=== PATIENT | male | born 1960 | race Caucasian/White ===

== ENCOUNTER 2023-08-04 12:30 | Inpatient (IN) | payer OTHER ==
[~2023-08-04] VITALS: Ht 188 cm; Wt 96.2 kg
[2023-08-04] VITALS (7 sets, daily range): BP systolic 125–153; BP diastolic 65–100; PULSE 103–124; RESP 25–39; TEMP 97.6–99.9; O2SAT 98–100
[2023-08-04] MEDS: NACL 0.9% 3,000 ML IV ONE (13:18)
[2023-08-04 13:23] LABS: BASOPHILS % (AUTO) 0.3 % (0.0-2.0); EOSINOPHILS # (AUTO) 0.2 K/uL (0-0.4); EOSINOPHILS % (AUTO) 1.9 % (0.0-4.0); HEMOGLOBIN 9.9 g/dL (12.0-18.0); LYMPHOCYTES # (AUTO) 1.2 K/uL (2.0-11.5); LYMPHOCYTES % (AUTO) 10.5 % (20.5-51.1); MEAN CORPUSCULAR HEMOGLOBIN 30 pg (27-31); MEAN CORPUSCULAR HGB CONC 33 g/dL (33-37); MEAN CORPUSCULAR VOLUME 91.2 fL (80-94); MONOCYTES # (AUTO) 0.7 K/uL (0.8-1.0); MONOCYTES % (AUTO) 6.2 % (1.7-9.3); NEUTROPHILS # (AUTO) 9.1 K/uL (1.8-7.7); NEUTROPHILS % (AUTO) 81.1 % (42.2-75.2); PLATELET COUNT (AUTO) 374 K/uL (140-450); RED CELL DISTRIBUTION WIDTH 15.8 % (11.6-13.7); WHITE BLOOD COUNT (AUTO) 11.2 K/uL (4.8-10.8)
[2023-08-04 13:41] LABS: ANION GAP 20.9 (8-16); CALCIUM 8.6 mg/dL (8.5-10.1); CARBON DIOXIDE 19.4 mmol/L (21-32); POTASSIUM 3.3 mmol/L (3.5-5.1)
[2023-08-04 13:44] LABS: CREATININE 4.7 mg/dL (0.6-1.3)
[2023-08-04 13:55] LABS: LACTIC ACID 3.2 mmol/L (0.4-2.0)
[2023-08-04] MEDS: METOPROLOL 5 MG/5 ML VIAL IVP ONE ×2 (13:55→15:52)
[2023-08-04 13:58] LABS: ALANINE AMINOTRANSFERASE 63 U/L (12-78); ALBUMIN 2.4 g/dL (3.4-5.0); ALKALINE PHOSPHATASE 170 U/L (50-136); ASPARTATE AMINOTRANSFERASE 57 U/L (15-37); BILIRUBIN,DIRECT 0.5 mg/dL (0.0-0.3); MAGNESIUM 2.3 mg/dL (1.8-2.4); PHOSPHORUS 4.1 mg/dL (2.5-4.9); THYROID STIMULATING HORMONE 2.99 uIU/mL (0.34-3.74); TOTAL BILIRUBIN 1.1 mg/dL (0.0-1.0); TOTAL PROTEIN, SERUM 7.6 g/dL (6.4-8.2)
[2023-08-04] MEDS ORDERED: PIPERACILLIN/TAZOBACTAM 2.25 GM VIAL IV ONE ×2 (14:04→21:00)
[2023-08-04] MEDS: PIPERACILLIN/TAZOBACTAM 2.25 GM in DEXTROSE 5% 50 ML IV ONE (14:07)
[2023-08-04 14:32] LABS: APPEARANCE,URINE CLOUDY (CLEAR); BILIRUBIN,URINE 2+ (NEGATIVE); BLOOD, URINE 3+ (NEGATIVE); COLOR,URINE BROWN (YELLOW); LEUKOCYTE ESTERASE ,URINE TRACE (NEGATIVE); NITRITE, URINE NEGATIVE (NEGATIVE); PH,URINE 5.5 (5.0-9.0); PROTEIN,URINE 3+ (NEGATIVE); UGLUCOSE NEGATIVE (NEGATIVE)
[2023-08-04 14:56] LABS: FLU A ANTIGEN negative (NEGATIVE); FLU B ANTIGEN NEGATIVE (NEGATIVE)
[2023-08-04 14:57] LABS: ICTOTEST NEGATIVE (NEGATIVE)
[2023-08-04 14:59] LABS: BACTERIA,URINE FEW /HPF (None Seen); RBC,URINE 11-20 (MOD) /HPF (0-5); SQUAMOUS EPITHELIAL CELL,UR 0-3 (FEW) /LPF (0-3 (FEW))
[2023-08-04] MEDS ORDERED: ACETAMINOPHEN 325 MG TAB PO PRN (17:05)
[2023-08-04] MEDS ORDERED: ONDANSETRON 4 MG/2 ML VIAL IVP PRN (17:05)
[2023-08-04] MEDS ORDERED: DEXTROSE 50% 50 ML SYR IVP PRN (17:10)
[2023-08-04] MEDS: NACL 0.9% 1,000 ML IV SCH (17:12)
[2023-08-04] MEDS ORDERED: AMIODARONE 150 MG/3 ML VIAL IV ONE ×2 (17:20)
[2023-08-04] MEDS: AMIODARONE 150 MG in DEXTROSE 5% 100 ML IV ONE (17:28)
[2023-08-04] MEDS: LORazepam 2 MG/ML VIAL IVP ONE (17:32)
[2023-08-04] MEDS: AMIODARONE 450 MG in DEXTROSE 5% 250 ML IV ONE (17:47)
[2023-08-04] MEDS ORDERED: ACET-2619 PO (17:54)
[2023-08-04 17:56] LABS: BLOOD GAS PCO2 27.8 mmHg (35-45); BLOOD GAS PH 7.364 (7.35-7.45)
[2023-08-04 17:57] LABS: BLOOD GAS BASE EXCESS -8.6 mmol/L (-2.0-2.0); BLOOD GAS HCO3 15.5 mmol/L (22-26); BLOOD GAS O2 SAT% 98.7 % (92.0-98.5); BLOOD GAS PO2 140.5 mmHg (75-100)
[2023-08-04] MEDS ORDERED: ASCO500T95 PO (17:58)
[2023-08-04] MEDS ORDERED: ACET-2214 PO (17:58)
[2023-08-04] MEDS ORDERED: ARGI4.5P3 PO (17:58)
[2023-08-04] MEDS ORDERED: ASPI-1822 PO (17:58)
[2023-08-04] MEDS ORDERED: INSU100S22 SC (18:08)
[2023-08-04] MEDS ORDERED: MULT-2171 PO (18:08)
[2023-08-04] MEDS ORDERED: BISA-213 RC (18:08)
[2023-08-04] MEDS ORDERED: METO25TA PO (18:08)
[2023-08-04] MEDS ORDERED: METO-485 PO (18:08)
[2023-08-04] MEDS ORDERED: LORA-476 PO (18:08)
[2023-08-04] MEDS ORDERED: LEVE1000 PO (18:08)
[2023-08-04] MEDS ORDERED: FAMO-90 PO (18:08)
[2023-08-04] MEDS ORDERED: HEPA500056 (18:08)
[2023-08-04] MEDS ORDERED: NUTR30LI2 PO (18:08)
[2023-08-04] MEDS ORDERED: ZINC220C9 PO (18:08)
[2023-08-04] MEDS ORDERED: DIPH25TA53 PO (18:08)
[2023-08-04] MEDS ORDERED: NYST15CR7 TP (18:08)
[2023-08-04] MEDS ORDERED: ESCI-28 PO (18:08)
[2023-08-04] MEDS ORDERED: TAMS0.4C96 PO (18:08)
[2023-08-04] MEDS ORDERED: QUET200T PO (18:08)
[2023-08-04] MEDS ORDERED: INSU100S5 IJ (18:08)
[2023-08-04] MEDS ORDERED: CLON-1202 PO (18:08)
[2023-08-04] MEDS ORDERED: AMIODARONE 450 MG in DEXTROSE 5% 250 ML IV ONE (18:45)
[2023-08-04] MEDS: AMIODARONE 450 MG in DEXTROSE 5% 250 ML IV SCH (20:29)
[2023-08-04] MEDS ORDERED: DEXT 5% / NACL 0.9% 500 ML IV SCH (21:05)
[2023-08-04] MEDS: BLOOD GLUCOSE MONITORING 1 DEV DEV FS SCH (21:09)
[2023-08-04] MEDS: PIPERACILLIN/TAZOBACTAM 2.25 GM in DEXTROSE 5% 50 ML IV SCH (21:19)
[2023-08-04] MEDS: DEXT 5% /NACL 0.9% 1,000 ML IV SCH (21:34)
[2023-08-04] MEDS: KCL 20 MEQ IN 100 mL PREMIX 200 ML IV ONE (21:44)
[2023-08-04] MEDS: LINEZOLID 600MG PREMIX 300 ML IV SCH (21:47)
[2023-08-04] MEDS: METOPROLOL 5 MG/5 ML VIAL IVP PRN (23:59)
[2023-08-05] VITALS (30 sets, daily range): BP systolic 131–164; BP diastolic 74–116; PULSE 90–131; RESP 23–40; TEMP 97.5–98.9; O2SAT 95–100
[2023-08-05] MEDS ORDERED: PIPERACILLIN/TAZOBACTAM 2.25 GM VIAL IV ONE (04:18)
[2023-08-05 05:17] LABS: BASOPHILS # (AUTO) 0.1 K/uL (0.00-0.22); BASOPHILS % (AUTO) 0.7 % (0.0-2.0); EOSINOPHILS # (AUTO) 0.2 K/uL (0-0.4); EOSINOPHILS % (AUTO) 1.4 % (0.0-4.0); HEMATOCRIT 32.1 % (36-52); HEMOGLOBIN 10.3 g/dL (12.0-18.0); LYMPHOCYTES # (AUTO) 1.2 K/uL (2.0-11.5); LYMPHOCYTES % (AUTO) 9.6 % (20.5-51.1); MEAN CORPUSCULAR HEMOGLOBIN 30 pg (27-31); MEAN CORPUSCULAR HGB CONC 32 g/dL (33-37); MEAN CORPUSCULAR VOLUME 92.7 fL (80-94); MONOCYTES # (AUTO) 0.8 K/uL (0.8-1.0); MONOCYTES % (AUTO) 6.5 % (1.7-9.3); NEUTROPHILS # (AUTO) 10.4 K/uL (1.8-7.7); NEUTROPHILS % (AUTO) 81.8 % (42.2-75.2); PLATELET COUNT (AUTO) 314 K/uL (140-450); RED BLOOD CELL COUNT(AUTO) 3.47 MIL/uL (4.20-6.10); RED CELL DISTRIBUTION WIDTH 16.1 % (11.6-13.7); WHITE BLOOD COUNT (AUTO) 12.8 K/uL (4.8-10.8)
[2023-08-05 05:49] LABS: ANION GAP 20.9 (8-16); CALCIUM 8.6 mg/dL (8.5-10.1); CARBON DIOXIDE 16.9 mmol/L (21-32); POTASSIUM 3.8 mmol/L (3.5-5.1)
[2023-08-05 07:25] LABS: CREATININE 4.7 mg/dL (0.6-1.3)
[2023-08-05] MEDS: INSULIN LISPRO SLIDING SCALE 100 UNITS/ML VIAL SUBQ PRN (09:49)
[2023-08-05] MEDS: DIGOXIN 0.25 MG/ML AMP IV SCH ×3 (15:16→21:56)
[2023-08-05] MEDS: FUROSEMIDE 100 MG/10 ML VIAL IV SCH (16:14)
[2023-08-05] MEDS: ALBUMIN HUMAN 25% 100 ML IV SCH (16:14)
[2023-08-05] MEDS ORDERED: DEXMEDETOMIDINE HCL 400 MCG in NACL 0.9% 96 ML IV PRN (16:20)
[2023-08-05] MEDS: SODIUM BICARBONATE 8.4% 100 MEQ in DEXTROSE 5% 1,000 ML IV SCH (17:42)
[2023-08-05] MEDS: PANTOPRAZOLE 40 MG INJ VIAL IVP SCH (17:50)
[2023-08-05] MEDS: METOPROLOL 5 MG/5 ML VIAL IV SCH (17:51)
[2023-08-05 18:34] LABS: BILIRUBIN,URINE NEGATIVE (NEGATIVE); BLOOD, URINE 3+ (NEGATIVE); COLOR,URINE YELLOW (YELLOW); LEUKOCYTE ESTERASE ,URINE TRACE (NEGATIVE); NITRITE, URINE NEGATIVE (NEGATIVE); PROTEIN,URINE 3+ (NEGATIVE); UGLUCOSE NEGATIVE (NEGATIVE); UROBILINOGEN,URINE 0.2 EU/dL (0.2 - 1)
[2023-08-05 18:40] LABS: APPEARANCE,URINE SLIGHTLY HAZY (CLEAR)
[2023-08-05 18:43] LABS: BACTERIA,URINE 10-30 (MOD) /HPF (None Seen); SQUAMOUS EPITHELIAL CELL,UR 0-3 (FEW) /LPF (0-3 (FEW)); WBC,URINE 0-5 /HPF (0-5)
[2023-08-06] VITALS (24 sets, daily range): BP systolic 125–150; BP diastolic 56–86; PULSE 64–102; RESP 15–39; TEMP 97.9–98.4; O2SAT 95–100
[2023-08-06] MEDS: DIGOXIN 0.25 MG/ML AMP IV SCH (04:44)
[2023-08-06 05:29] LABS: BASOPHILS # (AUTO) 0.1 K/uL (0.00-0.22); BASOPHILS % (AUTO) 0.9 % (0.0-2.0); EOSINOPHILS # (AUTO) 0.7 K/uL (0-0.4); EOSINOPHILS % (AUTO) 5.6 % (0.0-4.0); HEMATOCRIT 27.4 % (36-52); LYMPHOCYTES # (AUTO) 1.2 K/uL (2.0-11.5); MEAN CORPUSCULAR HEMOGLOBIN 30 pg (27-31); MEAN CORPUSCULAR HGB CONC 33 g/dL (33-37); MONOCYTES # (AUTO) 0.6 K/uL (0.8-1.0); MONOCYTES % (AUTO) 5.1 % (1.7-9.3); NEUTROPHILS # (AUTO) 9.5 K/uL (1.8-7.7); NEUTROPHILS % (AUTO) 78.4 % (42.2-75.2); PLATELET COUNT (AUTO) 210 K/uL (140-450); RED BLOOD CELL COUNT(AUTO) 3.01 MIL/uL (4.20-6.10); RED CELL DISTRIBUTION WIDTH 15.8 % (11.6-13.7); WHITE BLOOD COUNT (AUTO) 12.1 K/uL (4.8-10.8)
[2023-08-06 05:42] LABS: CALCIUM 8.1 mg/dL (8.5-10.1); CREATININE 3.5 mg/dL (0.6-1.3)
[2023-08-06] MEDS: FUROSEMIDE 40 MG/4 ML VIAL IVP SCH (08:52)
[2023-08-06] MEDS: MORPHINE SULFATE 2 MG/ML SYR IVP PRN (10:56)
[2023-08-06] MEDS ORDERED: Z-GUARD PASTE TP PRN (11:35)
[2023-08-06] MEDS ORDERED: THERAHONEY GEL 42.5 GM TP PRN (11:35)
[2023-08-06] MEDS ORDERED: FOAM DRESSING TP PRN (11:35)
[2023-08-06] MEDS: KCL 20 MEQ IN 100 mL PREMIX 100 ML IV SCH (12:01)
[2023-08-06] MEDS ORDERED: LORazepam 2 MG/ML VIAL IVP PRN (12:55)
[2023-08-06] MEDS: FOAM DRESSING TP SCH (13:41)
[2023-08-06] MEDS: THERAHONEY GEL 42.5 GM TP SCH (13:41)
[2023-08-06] MEDS: Z-GUARD PASTE TP SCH (13:42)
[2023-08-06] MEDS: LORazepam 2 MG/ML VIAL IM/IVP PRN (15:53)
[2023-08-06 16:40] LABS: CALCIUM 7.9 mg/dL (8.5-10.1); CARBON DIOXIDE 27.3 mmol/L (21-32); CREATININE 3.8 mg/dL (0.6-1.3); POTASSIUM 3.3 mmol/L (3.5-5.1)
[2023-08-06] MEDS: MAG SULF 2000 MG/WATER PREMIX 50 ML IV SCH (17:42)
[2023-08-06] MEDS: MUPIROCIN CA NASAL 2% 1GM TUBE NS SCH (17:43)
[2023-08-06] MEDS: CHLORHEXADINE GLUC 2% CLOTH TP SCH (17:52)
[2023-08-06] MEDS: GAUZE TP SCH (21:26)
[2023-08-06] MEDS: KCL 20 MEQ IN 100 mL PREMIX 200 ML IV SCH (22:23)
[2023-08-07] VITALS (12 sets, daily range): BP systolic 124–140; BP diastolic 25–91; PULSE 67–93; RESP 15–22; TEMP 97.2–98.4; O2SAT 80–100
[2023-08-07 07:16] LABS: POTASSIUM 3.8 mmol/L (3.5-5.1)
[2023-08-07 07:17] LABS: ANION GAP 16.7 (8-16); CALCIUM 8.3 mg/dL (8.5-10.1); CARBON DIOXIDE 25.1 mmol/L (21-32)
[2023-08-07 07:19] LABS: CREATININE 4.1 mg/dL (0.6-1.3)
[2023-08-07] MEDS: DIGOXIN 0.25 MG/ML AMP IV SCH (08:46)
[2023-08-07 16:06] LABS: HEPATITIS A ANTIBODY IGM Negative (Negative); HEPATITIS A ANTIBODY TOTAL Negative (Negative); HEPATITIS B CORE AB TOTAL Negative (Negative); HEPATITIS B CORE, IGM Negative (Negative); HEPATITIS B SURFACE ANTIBODY Non Reactive (.); HEPATITIS B SURFACE ANTIGEN Negative (Negative); HEPATITIS C VIRUS ANTIBODY Non Reactive (Non Reactive)
[2023-08-07] MEDS: ALBUTEROL SULFATE/IPRATROPIU 3 ML SOL IH SCH (20:03)
[2023-08-08] VITALS (12 sets, daily range): BP systolic 121–158; BP diastolic 75–96; PULSE 62–88; RESP 18–21; TEMP 97.4–98.1; O2SAT 80–100
[2023-08-08 05:55] LABS: BASOPHILS # (AUTO) 0.1 K/uL (0.00-0.22); BASOPHILS % (AUTO) 1.1 % (0.0-2.0); EOSINOPHILS # (AUTO) 0.6 K/uL (0-0.4); EOSINOPHILS % (AUTO) 7.1 % (0.0-4.0); HEMATOCRIT 30.4 % (36-52); HEMOGLOBIN 10.2 g/dL (12.0-18.0); LYMPHOCYTES # (AUTO) 0.6 K/uL (2.0-11.5); LYMPHOCYTES % (AUTO) 8.2 % (20.5-51.1); MEAN CORPUSCULAR HEMOGLOBIN 30 pg (27-31); MEAN CORPUSCULAR HGB CONC 34 g/dL (33-37); MEAN CORPUSCULAR VOLUME 90.4 fL (80-94); MONOCYTES # (AUTO) 0.6 K/uL (0.8-1.0); NEUTROPHILS % (AUTO) 75.6 % (42.2-75.2); PLATELET COUNT (AUTO) 204 K/uL (140-450); RED BLOOD CELL COUNT(AUTO) 3.36 MIL/uL (4.20-6.10); RED CELL DISTRIBUTION WIDTH 16.5 % (11.6-13.7); WHITE BLOOD COUNT (AUTO) 7.9 K/uL (4.8-10.8)
[2023-08-08 06:34] LABS: ANION GAP 14.8 (8-16); CALCIUM 8.5 mg/dL (8.5-10.1); CARBON DIOXIDE 27.7 mmol/L (21-32); CREATININE 3.4 mg/dL (0.6-1.3); POTASSIUM 3.5 mmol/L (3.5-5.1)
[2023-08-08 06:43] LABS: PHOSPHORUS 3.9 mg/dL (2.5-4.9)
[2023-08-08] MEDS: METOPROLOL 50 MG TAB NG SCH (21:01)
[2023-08-09] VITALS (12 sets, daily range): BP systolic 133–153; BP diastolic 66–97; PULSE 60–81; RESP 16–20; TEMP 96–98.3; O2SAT 94–97
[2023-08-09 05:24] LABS: BASOPHILS # (AUTO) 0.1 K/uL (0.00-0.22); BASOPHILS % (AUTO) 1.3 % (0.0-2.0); EOSINOPHILS # (AUTO) 0.5 K/uL (0-0.4); EOSINOPHILS % (AUTO) 7.2 % (0.0-4.0); HEMOGLOBIN 9.9 g/dL (12.0-18.0); LYMPHOCYTES # (AUTO) 0.7 K/uL (2.0-11.5); MEAN CORPUSCULAR HEMOGLOBIN 30 pg (27-31); MEAN CORPUSCULAR HGB CONC 33 g/dL (33-37); MEAN CORPUSCULAR VOLUME 91.4 fL (80-94); MONOCYTES # (AUTO) 0.7 K/uL (0.8-1.0); MONOCYTES % (AUTO) 9.8 % (1.7-9.3); NEUTROPHILS # (AUTO) 4.8 K/uL (1.8-7.7); NEUTROPHILS % (AUTO) 71.7 % (42.2-75.2); PLATELET COUNT (AUTO) 193 K/uL (140-450); RED BLOOD CELL COUNT(AUTO) 3.29 MIL/uL (4.20-6.10); RED CELL DISTRIBUTION WIDTH 16.3 % (11.6-13.7); WHITE BLOOD COUNT (AUTO) 6.7 K/uL (4.8-10.8)
[2023-08-09 05:55] LABS: ANION GAP 16.5 (8-16); CALCIUM 8.6 mg/dL (8.5-10.1); CARBON DIOXIDE 26.7 mmol/L (21-32); CREATININE 3.9 mg/dL (0.6-1.3); POTASSIUM 3.2 mmol/L (3.5-5.1)
[2023-08-09 06:00] LABS: MAGNESIUM 1.9 mg/dL (1.8-2.4); PHOSPHORUS 5.3 mg/dL (2.5-4.9)
[2023-08-09] MEDS: DIGOXIN 0.125 MG/2.5 ML UDC NG SCH (09:44)
[2023-08-09] MEDS: LINEZOLID 600MG PREMIX 300 ML IV SCH (10:19)
[2023-08-09] MEDS: POTASSIUM CHLORIDE 10 MEQ TABER PO SCH (17:56)
[2023-08-10] VITALS (10 sets, daily range): BP systolic 138–158; BP diastolic 63–98; PULSE 18–92; RESP 18–20; TEMP 96.9–98.5; O2SAT 95–99
[2023-08-10 05:14] LABS: BASOPHILS # (AUTO) 0.1 K/uL (0.00-0.22); BASOPHILS % (AUTO) 1.3 % (0.0-2.0); EOSINOPHILS # (AUTO) 0.5 K/uL (0-0.4); EOSINOPHILS % (AUTO) 7.9 % (0.0-4.0); HEMATOCRIT 30.7 % (36-52); HEMOGLOBIN 10.2 g/dL (12.0-18.0); LYMPHOCYTES # (AUTO) 0.8 K/uL (2.0-11.5); MEAN CORPUSCULAR HEMOGLOBIN 30 pg (27-31); MEAN CORPUSCULAR HGB CONC 33 g/dL (33-37); MONOCYTES # (AUTO) 0.7 K/uL (0.8-1.0); MONOCYTES % (AUTO) 11.3 % (1.7-9.3); NEUTROPHILS % (AUTO) 66.5 % (42.2-75.2); PLATELET COUNT (AUTO) 188 K/uL (140-450); RED BLOOD CELL COUNT(AUTO) 3.37 MIL/uL (4.20-6.10)
[2023-08-10 05:29] LABS: CALCIUM 8.4 mg/dL (8.5-10.1)
[2023-08-10 05:33] LABS: PHOSPHORUS 6.1 mg/dL (2.5-4.9)
[2023-08-10 05:35] LABS: CREATININE 4.3 mg/dL (0.6-1.3)
[2023-08-10] MEDS: POTASSIUM CHLORIDE 40 MEQ, LIDOCAINE 1% 25 MG in NACL 0.9% 250 ML IV ONE (08:49)
[2023-08-10 16:14] LABS: ANION GAP 15.4 (8-16); CALCIUM 8.6 mg/dL (8.5-10.1); CARBON DIOXIDE 26.3 mmol/L (21-32); CREATININE 3.3 mg/dL (0.6-1.3); POTASSIUM 3.7 mmol/L (3.5-5.1)
[2023-08-11] VITALS (13 sets, daily range): BP systolic 142–161; BP diastolic 86–100; PULSE 61–82; RESP 15–20; TEMP 96.9–98.6; O2SAT 96–100
[2023-08-11] MEDS: DEXT 5% /NACL 0.9% 1,000 ML IV SCH (00:04)
[2023-08-11 05:16] LABS: BASOPHILS # (AUTO) 0.1 K/uL (0.00-0.22); BASOPHILS % (AUTO) 1.2 % (0.0-2.0); EOSINOPHILS # (AUTO) 0.7 K/uL (0-0.4); EOSINOPHILS % (AUTO) 10.9 % (0.0-4.0); HEMATOCRIT 33.4 % (36-52); HEMOGLOBIN 11.1 g/dL (12.0-18.0); LYMPHOCYTES # (AUTO) 0.8 K/uL (2.0-11.5); LYMPHOCYTES % (AUTO) 13.3 % (20.5-51.1); MEAN CORPUSCULAR HEMOGLOBIN 30 pg (27-31); MEAN CORPUSCULAR HGB CONC 33 g/dL (33-37); MEAN CORPUSCULAR VOLUME 91.1 fL (80-94); MONOCYTES # (AUTO) 0.6 K/uL (0.8-1.0); NEUTROPHILS # (AUTO) 4.1 K/uL (1.8-7.7); NEUTROPHILS % (AUTO) 64.6 % (42.2-75.2); PLATELET COUNT (AUTO) 155 K/uL (140-450); RED BLOOD CELL COUNT(AUTO) 3.67 MIL/uL (4.20-6.10); RED CELL DISTRIBUTION WIDTH 17.2 % (11.6-13.7); WHITE BLOOD COUNT (AUTO) 6.3 K/uL (4.8-10.8)
[2023-08-11 05:23] LABS: ANION GAP 17.5 (8-16); CALCIUM 8.8 mg/dL (8.5-10.1); CARBON DIOXIDE 25.8 mmol/L (21-32); CREATININE 3.6 mg/dL (0.6-1.3); POTASSIUM 3.3 mmol/L (3.5-5.1)
[2023-08-11 07:30] LABS: MAGNESIUM 1.9 mg/dL (1.8-2.4); PHOSPHORUS 5.1 mg/dL (2.5-4.9)
[2023-08-11] MEDS: POTASSIUM CHLORIDE 20 MEQ, LIDOCAINE MPF 1% 25 MG in NACL 0.9% 250 ML IV ONE (13:29)
[2023-08-11] MEDS: diphenhydrAMINE 50 MG/ML VIAL ONE (14:34)
[2023-08-11] MEDS: fentaNYL citrate 0.05 MG/ML VIAL ONE (14:34)
[2023-08-11] MEDS: MIDAZOLAM 5 MG/5 ML VIAL ONE (14:35)
[2023-08-11] MEDS: MIDAZOLAM 5 MG/5 ML VIAL IV ONE (17:26)
[2023-08-11] MEDS: fentaNYL citrate 0.05 MG/ML VIAL IVP ONE (17:27)
[2023-08-12] VITALS (13 sets, daily range): BP systolic 140–173; BP diastolic 78–100; PULSE 57–86; RESP 14–18; TEMP 96.2–97.6; O2SAT 94–99
[2023-08-12 05:24] LABS: BASOPHILS # (AUTO) 0.1 K/uL (0.00-0.22); BASOPHILS % (AUTO) 1.1 % (0.0-2.0); EOSINOPHILS # (AUTO) 0.6 K/uL (0-0.4); EOSINOPHILS % (AUTO) 10.9 % (0.0-4.0); HEMATOCRIT 31.5 % (36-52); HEMOGLOBIN 10.5 g/dL (12.0-18.0); LYMPHOCYTES # (AUTO) 0.7 K/uL (2.0-11.5); LYMPHOCYTES % (AUTO) 12.6 % (20.5-51.1); MEAN CORPUSCULAR HEMOGLOBIN 30 pg (27-31); MEAN CORPUSCULAR HGB CONC 33 g/dL (33-37); MEAN CORPUSCULAR VOLUME 91.4 fL (80-94); MONOCYTES # (AUTO) 0.7 K/uL (0.8-1.0); MONOCYTES % (AUTO) 11.1 % (1.7-9.3); NEUTROPHILS # (AUTO) 3.8 K/uL (1.8-7.7); NEUTROPHILS % (AUTO) 64.3 % (42.2-75.2); PLATELET COUNT (AUTO) 141 K/uL (140-450); RED BLOOD CELL COUNT(AUTO) 3.45 MIL/uL (4.20-6.10); RED CELL DISTRIBUTION WIDTH 17.2 % (11.6-13.7); WHITE BLOOD COUNT (AUTO) 5.9 K/uL (4.8-10.8)
[2023-08-12 05:41] LABS: ANION GAP 13.7 (8-16); CALCIUM 8.4 mg/dL (8.5-10.1); CARBON DIOXIDE 26.4 mmol/L (21-32); CREATININE 3.9 mg/dL (0.6-1.3); POTASSIUM 3.1 mmol/L (3.5-5.1)
[2023-08-12 05:52] LABS: MAGNESIUM 1.8 mg/dL (1.8-2.4); PHOSPHORUS 4.9 mg/dL (2.5-4.9)
[2023-08-12] MEDS: POTASSIUM CHLORIDE 20% 40 MEQ/15 ML UDC GT SCH (09:18)
[2023-08-12] MEDS ORDERED: METO50TA99 NG (12:05)
[2023-08-12] MEDS ORDERED: DIGO0.051 GT (12:05)
[2023-08-12] MEDS ORDERED: HUMSLIDE SUBQ (12:05)
[2023-08-12] MEDS ORDERED: MIDA5SPR NS (12:08)
[2023-08-12] MEDS: levETIRAcetam 100 MG/ML ORASYR GT SCH (15:13)
[2023-08-12] MEDS: VALPROIC ACID 250 MG/5 ML UDC GT SCH (15:13)
[2023-08-13] VITALS (8 sets, daily range): BP systolic 140–155; BP diastolic 65–85; PULSE 65–86; RESP 16–19; TEMP 97–97.5; O2SAT 92–100
[2023-08-13 05:22] LABS: BASOPHILS # (AUTO) 0.1 K/uL (0.00-0.22); BASOPHILS % (AUTO) 1.1 % (0.0-2.0); EOSINOPHILS # (AUTO) 0.6 K/uL (0-0.4); EOSINOPHILS % (AUTO) 9.3 % (0.0-4.0); HEMATOCRIT 34.4 % (36-52); HEMOGLOBIN 11.3 g/dL (12.0-18.0); LYMPHOCYTES # (AUTO) 0.8 K/uL (2.0-11.5); LYMPHOCYTES % (AUTO) 12.4 % (20.5-51.1); MEAN CORPUSCULAR HEMOGLOBIN 30 pg (27-31); MEAN CORPUSCULAR HGB CONC 33 g/dL (33-37); MEAN CORPUSCULAR VOLUME 91.7 fL (80-94); MONOCYTES # (AUTO) 0.7 K/uL (0.8-1.0); MONOCYTES % (AUTO) 10.6 % (1.7-9.3); NEUTROPHILS # (AUTO) 4.4 K/uL (1.8-7.7); NEUTROPHILS % (AUTO) 66.6 % (42.2-75.2); PLATELET COUNT (AUTO) 135 K/uL (140-450); RED BLOOD CELL COUNT(AUTO) 3.75 MIL/uL (4.20-6.10); WHITE BLOOD COUNT (AUTO) 6.6 K/uL (4.8-10.8)
[2023-08-13 05:31] LABS: ANION GAP 15.7 (8-16); CALCIUM 8.5 mg/dL (8.5-10.1); MAGNESIUM 1.8 mg/dL (1.8-2.4); POTASSIUM 3.7 mmol/L (3.5-5.1)
[2023-08-13 05:40] LABS: CREATININE 4.1 mg/dL (0.6-1.3)
[2023-08-13] MEDS: MAG SULF 2000 MG/WATER PREMIX 50 ML IV SCH (14:49)
[2023-08-14] VITALS (7 sets, daily range): BP systolic 125–149; BP diastolic 68–80; PULSE 73–85; RESP 16–20; TEMP 96.4–97.5; O2SAT 94–98
[2023-08-14 05:41] LABS: ANION GAP 16.2 (8-16); CALCIUM 8.7 mg/dL (8.5-10.1); CARBON DIOXIDE 26.8 mmol/L (21-32)
[2023-08-14 05:42] LABS: CREATININE 4.1 mg/dL (0.6-1.3)
[2023-08-14 05:52] LABS: MAGNESIUM 2.4 mg/dL (1.8-2.4); PHOSPHORUS 5.1 mg/dL (2.5-4.9)
[2023-08-14 06:31] LABS: BASOPHILS # (AUTO) 0.1 K/uL (0.00-0.22); BASOPHILS % (AUTO) 0.7 % (0.0-2.0); EOSINOPHILS # (AUTO) 0.6 K/uL (0-0.4); EOSINOPHILS % (AUTO) 6.1 % (0.0-4.0); HEMATOCRIT 36.5 % (36-52); HEMOGLOBIN 12.1 g/dL (12.0-18.0); LYMPHOCYTES # (AUTO) 0.8 K/uL (2.0-11.5); LYMPHOCYTES % (AUTO) 8.3 % (20.5-51.1); MEAN CORPUSCULAR HEMOGLOBIN 30 pg (27-31); MEAN CORPUSCULAR HGB CONC 33 g/dL (33-37); MEAN CORPUSCULAR VOLUME 91.9 fL (80-94); MONOCYTES # (AUTO) 0.9 K/uL (0.8-1.0); MONOCYTES % (AUTO) 10.3 % (1.7-9.3); NEUTROPHILS # (AUTO) 6.9 K/uL (1.8-7.7); NEUTROPHILS % (AUTO) 74.6 % (42.2-75.2); PLATELET COUNT (AUTO) 129 K/uL (140-450); RED BLOOD CELL COUNT(AUTO) 3.97 MIL/uL (4.20-6.10); RED CELL DISTRIBUTION WIDTH 18.3 % (11.6-13.7); WHITE BLOOD COUNT (AUTO) 9.2 K/uL (4.8-10.8)
[2023-08-14] MEDS: MIDAZOLAM 2 MG/2 ML VIAL ONE (09:27)
[2023-08-14] MEDS: fentaNYL citrate 0.05 MG/ML VIAL ONE ×2 (09:27→11:37)
[2023-08-14] MEDS: MIDAZOLAM 2 MG/2 ML VIAL IVP ONE (09:28)
[2023-08-14] MEDS: fentaNYL citrate 0.05 MG/ML VIAL IVP ONE (09:29)
[2023-08-14] MEDS: LIDOCAINE MPF 2% 100 MG/5 ML VIAL INJ ONE (10:19)
[2023-08-14] MEDS: LIDOCAINE/EPI 1% 1:100000 20 ML VIAL INJ ONE (10:53)
[2023-08-14] MEDS: MIDAZOLAM 5 MG/5 ML VIAL ONE (11:35)
[2023-08-14] MEDS: BUPIVACAINE-MPF 0.25% 30 ML VIAL INJ ONE (11:48)
[2023-08-14] MEDS ORDERED: ONDANSETRON 4 MG/2 ML VIAL IVP PRN (12:00)
[2023-08-14] MEDS ORDERED: ONDANSETRON 4 MG/2 ML VIAL IV PRN (12:05)
[2023-08-14] MEDS ORDERED: MORPHINE SULFATE 4 MG/ML SYR IV PRN (12:05)
[2023-08-14] MEDS ORDERED: MORPHINE SULFATE 2 MG/ML SYR IVP PRN (12:05)
[2023-08-14] MEDS: PROPOFOL 200 MG/20 ML VIAL IV ONE (12:42)
[2023-08-14] MEDS: ceFAZolin 1,000 MG VIAL ONE ×2 (12:42)
[2023-08-14] MEDS: clonazePAM 0.5 MG TAB PO SCH (21:41)
[2023-08-15] VITALS (9 sets, daily range): BP systolic 136–176; BP diastolic 61–94; PULSE 66–84; RESP 18–20; TEMP 96.2–97.4; O2SAT 96–98
[2023-08-15 06:38] LABS: CALCIUM 8.5 mg/dL (8.5-10.1); CARBON DIOXIDE 23.2 mmol/L (21-32); CREATININE 3.1 mg/dL (0.6-1.3); POTASSIUM 4.2 mmol/L (3.5-5.1)
[2023-08-15] MEDS: QUEtiapine FUMARATE 25 MG TAB GT SCH (09:49)
[2023-08-16] VITALS (9 sets, daily range): BP systolic 122–129; BP diastolic 71–82; PULSE 63–84; RESP 16–20; TEMP 97.6–98.2; O2SAT 93–98
[2023-08-16 09:23] LABS: ANION GAP 14.4 (8-16); CALCIUM 8.6 mg/dL (8.5-10.1); CARBON DIOXIDE 26.2 mmol/L (21-32); POTASSIUM 3.6 mmol/L (3.5-5.1)
[2023-08-16] MEDS: HYDROcodone/APAP 5/325 MG 1 TAB TAB PO PRN (21:49)
[2023-08-17] VITALS (11 sets, daily range): BP systolic 114–151; BP diastolic 49–73; PULSE 60–84; RESP 14–20; TEMP 97.3–98.8; O2SAT 95–100
[2023-08-17 05:23] LABS: ANION GAP 12.9 (8-16); CALCIUM 8.5 mg/dL (8.5-10.1); CARBON DIOXIDE 28.2 mmol/L (21-32); POTASSIUM 4.1 mmol/L (3.5-5.1)
[2023-08-17 05:35] LABS: BASOPHILS # (AUTO) 0.1 K/uL (0.00-0.22); BASOPHILS % (AUTO) 0.9 % (0.0-2.0); EOSINOPHILS # (AUTO) 0.5 K/uL (0-0.4); EOSINOPHILS % (AUTO) 7.3 % (0.0-4.0); HEMATOCRIT 28.3 % (36-52); HEMOGLOBIN 9.6 g/dL (12.0-18.0); LYMPHOCYTES # (AUTO) 0.9 K/uL (2.0-11.5); LYMPHOCYTES % (AUTO) 14.4 % (20.5-51.1); MEAN CORPUSCULAR HEMOGLOBIN 31 pg (27-31); MEAN CORPUSCULAR HGB CONC 34 g/dL (33-37); MEAN CORPUSCULAR VOLUME 90.1 fL (80-94); MONOCYTES # (AUTO) 0.9 K/uL (0.8-1.0); MONOCYTES % (AUTO) 14.3 % (1.7-9.3); NEUTROPHILS # (AUTO) 3.9 K/uL (1.8-7.7); NEUTROPHILS % (AUTO) 63.1 % (42.2-75.2); PLATELET COUNT (AUTO) 102 K/uL (140-450); RED BLOOD CELL COUNT(AUTO) 3.14 MIL/uL (4.20-6.10); RED CELL DISTRIBUTION WIDTH 18.7 % (11.6-13.7); WHITE BLOOD COUNT (AUTO) 6.2 K/uL (4.8-10.8)
[2023-08-17 05:44] LABS: CREATININE 4.4 mg/dL (0.6-1.3)
[2023-08-17] MEDS: FUROSEMIDE 40 MG/4 ML VIAL IVP ONE (10:12)
[2023-08-17] MEDS: FUROSEMIDE 40 MG/5 ML ORAL SOL UDC PO SCH (17:00)
[2023-08-18] VITALS (12 sets, daily range): BP systolic 125–142; BP diastolic 50–72; PULSE 53–81; RESP 16–26; TEMP 97–98.7; O2SAT 93–100
[2023-08-18 06:18] LABS: ANION GAP 11.3 (8-16); CALCIUM 8.6 mg/dL (8.5-10.1); CARBON DIOXIDE 28.9 mmol/L (21-32); CREATININE 3.9 mg/dL (0.6-1.3); POTASSIUM 4.2 mmol/L (3.5-5.1)
[2023-08-18 08:32] LABS: BASOPHILS # (AUTO) 0.1 K/uL (0.00-0.22); BASOPHILS % (AUTO) 1.5 % (0.0-2.0); EOSINOPHILS # (AUTO) 0.4 K/uL (0-0.4); HEMATOCRIT 28.9 % (36-52); HEMOGLOBIN 9.7 g/dL (12.0-18.0); LYMPHOCYTES # (AUTO) 0.9 K/uL (2.0-11.5); LYMPHOCYTES % (AUTO) 14.9 % (20.5-51.1); MEAN CORPUSCULAR HEMOGLOBIN 30 pg (27-31); MEAN CORPUSCULAR HGB CONC 34 g/dL (33-37); MEAN CORPUSCULAR VOLUME 90.4 fL (80-94); MONOCYTES # (AUTO) 1.2 K/uL (0.8-1.0); MONOCYTES % (AUTO) 19.3 % (1.7-9.3); NEUTROPHILS # (AUTO) 3.6 K/uL (1.8-7.7); NEUTROPHILS % (AUTO) 57.3 % (42.2-75.2); PLATELET COUNT (AUTO) 112 K/uL (140-450); RED BLOOD CELL COUNT(AUTO) 3.19 MIL/uL (4.20-6.10); RED CELL DISTRIBUTION WIDTH 18.8 % (11.6-13.7); WHITE BLOOD COUNT (AUTO) 6.3 K/uL (4.8-10.8)
[2023-08-18 17:19] LABS: BLOOD GAS PCO2 37.8 mmHg (35-45); BLOOD GAS PH 7.478 (7.35-7.45)
[2023-08-18 17:20] LABS: BLOOD GAS PO2 56.5 mmHg (75-100)
[2023-08-18 17:24] LABS: BLOOD GAS BASE EXCESS 3.9 mmol/L (-2.0-2.0); BLOOD GAS HCO3 20.7 mmol/L (22-26)
[2023-08-18 17:25] LABS: BLOOD GAS O2 SAT% 93.1 % (92.0-98.5)
[2023-08-19] VITALS (9 sets, daily range): BP systolic 115–142; BP diastolic 72–73; PULSE 62–75; RESP 18–28; TEMP 97.8–98.6; O2SAT 93–100
[2023-08-19] MEDS: SCOPOLAMINE 1.5 MG/72 HR PATCH TD SCH (13:14)
== END 2023-08-19 17:45 | DRG 871 ==
LOC: MED 12:30 → MTU 17:06 → MIC 18:30 → MTU 08-07 00:20
PROVIDERS: ADMIT Hospitalist; ATTEND Hospitalist
PROC: 5A09357 Assistance with Respiratory Ventilation, Less than 24 Consecutive Hours, Continuous Positive Airway Pressure (ICD-10-PCS; 2023-08-04)
PROC: 02HV33Z Insertion of Infusion Device into Superior Vena Cava, Percutaneous Approach (ICD-10-PCS; principal; 2023-08-05)
PROC: B548ZZA Ultrasonography of Superior Vena Cava, Guidance (ICD-10-PCS; 2023-08-05)
PROC: 5A1D70Z Performance of Urinary Filtration, Intermittent, Less than 6 Hours Per Day (ICD-10-PCS; 2023-08-05)
PROC: 5A0935A Assistance with Respiratory Ventilation, Less than 24 Consecutive Hours, High Flow/Velocity Cannula (ICD-10-PCS; 2023-08-05)
PROC: 5A0935A Assistance with Respiratory Ventilation, Less than 24 Consecutive Hours, High Flow/Velocity Cannula (ICD-10-PCS; 2023-08-06)
PROC: 5A1D70Z Performance of Urinary Filtration, Intermittent, Less than 6 Hours Per Day (ICD-10-PCS; 2023-08-07)
PROC: 5A0935A Assistance with Respiratory Ventilation, Less than 24 Consecutive Hours, High Flow/Velocity Cannula (ICD-10-PCS; 2023-08-07)
PROC: 5A0935A Assistance with Respiratory Ventilation, Less than 24 Consecutive Hours, High Flow/Velocity Cannula (ICD-10-PCS; 2023-08-08)
PROC: 5A0935A Assistance with Respiratory Ventilation, Less than 24 Consecutive Hours, High Flow/Velocity Cannula (ICD-10-PCS; 2023-08-09)
PROC: 5A1D70Z Performance of Urinary Filtration, Intermittent, Less than 6 Hours Per Day (ICD-10-PCS; 2023-08-10)
PROC: 0DH63UZ Insertion of Feeding Device into Stomach, Percutaneous Approach (ICD-10-PCS; 2023-08-11)
PROC: 0DH63UZ Insertion of Feeding Device into Stomach, Percutaneous Approach (ICD-10-PCS; 2023-08-14)
PROC: 0JH63XZ Insertion of Tunneled Vascular Access Device into Chest Subcutaneous Tissue and Fascia, Percutaneous Approach (ICD-10-PCS; 2023-08-14)
PROC: 02HV33Z Insertion of Infusion Device into Superior Vena Cava, Percutaneous Approach (ICD-10-PCS; 2023-08-14)
PROC: B5181ZA Fluoroscopy of Superior Vena Cava using Low Osmolar Contrast, Guidance (ICD-10-PCS; 2023-08-14)
PROC: 02PYX3Z Removal of Infusion Device from Great Vessel, External Approach (ICD-10-PCS; 2023-08-14)
PROC: 5A1D70Z Performance of Urinary Filtration, Intermittent, Less than 6 Hours Per Day (ICD-10-PCS; 2023-08-14)
PROC: 5A1D70Z Performance of Urinary Filtration, Intermittent, Less than 6 Hours Per Day (ICD-10-PCS; 2023-08-17)
PROC: 5A1D70Z Performance of Urinary Filtration, Intermittent, Less than 6 Hours Per Day (ICD-10-PCS; 2023-08-19)
DX: A41.9 Sepsis, unspecified organism (principal); G93.41 Metabolic encephalopathy; J18.9 Pneumonia, unspecified organism; I50.43 Acute on chronic combined systolic (congestive) and diastolic (congestive) heart failure; J96.01 Acute respiratory failure with hypoxia; N17.0 Acute kidney failure with tubular necrosis; I48.20 Chronic atrial fibrillation, unspecified; I69.351 Hemiplegia and hemiparesis following cerebral infarction affecting right dominant side; E87.0 Hyperosmolality and hypernatremia; N39.0 Urinary tract infection, site not specified; I13.0 Hypertensive heart and chronic kidney disease with heart failure and stage 1 through stage 4 chronic kidney disease, or unspecified chronic kidney disease; Z20.822 Contact with and (suspected) exposure to COVID-19; Z66 Do not resuscitate; G40.909 Epilepsy, unspecified, not intractable, without status epilepticus; D64.9 Anemia, unspecified; E87.6 Hypokalemia; I34.1 Nonrheumatic mitral (valve) prolapse; I34.0 Nonrheumatic mitral (valve) insufficiency; R13.19 Other dysphagia; E11.22 Type 2 diabetes mellitus with diabetic chronic kidney disease; N18.9 Chronic kidney disease, unspecified; Z88.8 Allergy status to other drugs, medicaments and biological substances
CPT/HCPCS: 36415; 36600; 71045; 76770; 80048; 80076; 81001; 82803; 82948; 83605; 83735; 83880; 84100; 84443; 84484; 85025; 86704; 86706; 86708; 86709; 86803; 87040; 87081; 87086; 87340; 90935; 92526; 93005; 94640; 94660; 96361; 96374; 96375; 99291; 99292; C1750; C9113; J0282; J0690; J1160; J1200; J1644; J1815; J1940; J2001; J2020; J2060; J2250; J2270; J2543; J2704; J3010; J3475; J3480; J3490; J7030; J7042; J7060; P9046; Q0092